=== PATIENT | male | born 1980 | race Caucasian/White ===

== ENCOUNTER 2022-01-09 22:08 | Emergency (ER) | payer SELFPAY ==
[~2022-01-09 22:08] MED LIST: ISOVUE-370 76%-LOCM 1 ML ONE
[2022-01-09] MEDS ORDERED: Morphine 4 MG/ML VIAL ONE (22:32)
[2022-01-09] MEDS ORDERED: Ondansetron PF 4 MG/2 ML Vial ONE (22:32)
[2022-01-09 22:53] LABS: #Basophils 0.1 thou/uL (0.0-0.2); #Eosinphils 0.1 thou/uL (0.0-0.7); #Lymphocytes 1.5 thou/uL (1.20-3.40); #Monocytes 0.7 thou/uL (0.11-0.59); #Neutrophils 7.6 thou/uL (1.40-6.50); %Basophils 0.5 % (0.0-1.0); %Eosinophils 1.4 % (0.0-10.0); %Lymphocytes 15.1 % (21.0-51.0); %Monocytes 6.9 % (0.0-10.0); %Neutrophils 76.1 % (42.0-75.0); Hemoglobin 15.1 g/dL (14.0-18.0); Mean Corpuscular HGB CONC 34.3 g/dL (32.0-36.0); Mean Corpuscular Hemoglobin 34.5 pg (27.0-31.0); Mean Platelet Volume 9.2 fL (7.4-10.4); Platelet Count 203 thou/uL (130-400); RBC Distribution Width 11.3 % (11.5-14.5); Red Blood Cell (RBC) Count 4.38 mill/uL (4.70-6.10)
[2022-01-09 23:02] LABS: ALT (SGPT) 30 U/L (8-55); AST (SGOT) 20 U/L (5-34); Albumin 4.6 g/dL (3.5-5.0); Alkaline Phosphatase 92 U/L (40-110); Anion Gap 15 mmol/L (10-20); BUN (Urea Nitrogen) 10 mg/dL (8.9-20.6); Bilirubin, Total 1.7 mg/dL (0.2-1.2); Calc. Creatinine Clearance 0 mL/min (70-130); Calcium 9.8 mg/dL (7.8-10.44); Carbon Dioxide 23 mmol/L (22-29); Chloride 103 mmol/L (98-107); Estimated GFR 96; Glucose 105 mg/dL (70-105); Lipase 15 U/L (8-78); Potassium 4.1 mmol/L (3.5-5.1); Protein, Total 7.6 g/dL (6.0-8.3); Sodium 137 mmol/L (136-145)
[2022-01-09] MEDS ORDERED: Ketorolac Tromethamine 30 MG/ML VIAL ONE (23:35)
[2022-01-09] MEDS ORDERED: Pantoprazole 40 MG VIAL ONE (23:35)
[2022-01-09] MEDS ORDERED: Famotidine/PF 20 mg/2ml Vial ONE (23:35)
[2022-01-10 00:10] LABS: Bilirubin Negative (Negative); Blood, Urine Negative (Negative); Clarity Clear (Clear); Glucose, Urine (Dipstick) Normal (Negative); Ketone, Urine Negative (Negative); Leukocyte Negative Leu/uL (Negative); Nitrite Negative (Negative); Protein, Urine (Dipstick) Negative (Neg-Trace); Specific Gravity, Urine 1.048 (1.002-1.036); Urobilinogen Normal mg/dL (Less than 2)
== END 2022-01-10 00:31 | disposition home or self-care (01) ==
LOC: ERS 22:08
DX: R10.84 Generalized abdominal pain (principal); I10 Essential (primary) hypertension; Z87.891 Personal history of nicotine dependence
CPT/HCPCS: 74177; 80053; 81003; 83690; 85025; 93005; 96374; 96375; C9113; J1885; J2270; J2405; Q9966; S0028

== ENCOUNTER 2022-01-10 16:04 | Emergency (ER) | payer SELFPAY ==
[~2022-01-10 16:04] MED LIST changes: +GASTROGRAFIN 30 ML BOT ONE
[2022-01-10] MEDS ORDERED: Ondansetron PF 4 MG/2 ML Vial ONE (16:51)
[2022-01-10] MEDS ORDERED: Morphine 4 MG/ML VIAL ONE (16:51)
[2022-01-10] MEDS ORDERED: Ketorolac Tromethamine 30 MG/ML VIAL ONE (16:51)
[2022-01-10 16:54] LABS: #Basophils 0.1 thou/uL (0.0-0.2); #Eosinphils 0.2 thou/uL (0.0-0.7); #Lymphocytes 1.7 thou/uL (1.20-3.40); #Monocytes 0.5 thou/uL (0.11-0.59); #Neutrophils 5.8 thou/uL (1.40-6.50); %Basophils 0.9 % (0.0-1.0); %Eosinophils 2.2 % (0.0-10.0); %Lymphocytes 20.8 % (21.0-51.0); %Monocytes 6.6 % (0.0-10.0); %Neutrophils 69.5 % (42.0-75.0); Hemoglobin 14.9 g/dL (14.0-18.0); Mean Corpuscular HGB CONC 34.1 g/dL (32.0-36.0); Mean Corpuscular Volume 99.9 fL (78.0-98.0); Mean Platelet Volume 8.4 fL (7.4-10.4); Platelet Count 205 thou/uL (130-400); RBC Distribution Width 11.2 % (11.5-14.5); Red Blood Cell (RBC) Count 4.38 mill/uL (4.70-6.10); White Blood Cell (WBC) Count 8.3 thou/uL (4.8-10.8)
[2022-01-10 17:16] LABS: ALT (SGPT) 25 U/L (8-55); AST (SGOT) 17 U/L (5-34); Albumin 4.4 g/dL (3.5-5.0); Alkaline Phosphatase 87 U/L (40-110); Anion Gap 12 mmol/L (10-20); BUN (Urea Nitrogen) 11 mg/dL (8.9-20.6); Bilirubin, Total 1.6 mg/dL (0.2-1.2); Calc. Creatinine Clearance 0 mL/min (70-130); Calcium 9.4 mg/dL (7.8-10.44); Carbon Dioxide 25 mmol/L (22-29); Chloride 103 mmol/L (98-107); Estimated GFR 86; Globulin 2.9 g/dL (2.4-3.5); Glucose 88 mg/dL (70-105); Potassium 3.9 mmol/L (3.5-5.1); Protein, Total 7.3 g/dL (6.0-8.3); Sodium 136 mmol/L (136-145)
[2022-01-10 18:27] LABS: Bilirubin Negative (Negative); Blood, Urine Negative (Negative); Clarity Clear (Clear); Glucose, Urine (Dipstick) Normal (Negative); Ketone, Urine Negative (Negative); Leukocyte Negative Leu/uL (Negative); Nitrite Negative (Negative); Protein, Urine (Dipstick) Negative (Neg-Trace); Urobilinogen Normal mg/dL (Less than 2); pH, Urine 5.5 (5.0-9.0)
== END 2022-01-10 20:08 | disposition home or self-care (01) ==
LOC: ERS 16:04
DX: N41.9 Inflammatory disease of prostate, unspecified (principal); Z87.891 Personal history of nicotine dependence
CPT/HCPCS: 36415; 74177; 80053; 81003; 85025; 87086; 96361; 96374; 96375; J1885; J2270; J2405; Q9963; Q9966